=== PATIENT | male | born 1995 | race Caucasian/White ===

== ENCOUNTER 2022-10-12 13:23 | Inpatient (IN) | payer OTHER ==
[~2022-10-12 13:23] MED LIST: Iopamidol-370 76% 500 ML 1 ML ONE
[2022-10-12] MEDS ORDERED: Fentanyl 100 MCG/2 ML VIAL ONE ×2 (13:30→17:18)
[2022-10-12] MEDS ORDERED: Boostrix 0.5 ML (Tdap) VIAL (>/=7 yrs of age) ONE (14:06)
[2022-10-12] MEDS ORDERED: LORazepam 2 MG/ML SYR.(CARPUJECT) ONE (14:06)
[2022-10-12] MEDS ORDERED: Cyclobenzaprine 10 MG TAB PO PRN (14:54)
[2022-10-12] MEDS ORDERED: Morphine 2 MG/ML VIAL ONE (15:39)
[2022-10-12] MEDS ORDERED: Ondansetron PF 4 MG/2 ML Vial IVP PRN (16:43)
[2022-10-12] MEDS ORDERED: Ipratropium/Albuterol 3 ML NEB NEB PRN (16:43)
[2022-10-12] MEDS ORDERED: Morphine 2 MG/ML VIAL SLOW IVP PRN (16:43)
[2022-10-12] MEDS ORDERED: hydrALAZINE 20 MG/ML VIAL SLOW IVP PRN (16:43)
[2022-10-12] MEDS ORDERED: Acetaminophen 325 MG TAB PO SCH (16:45)
[2022-10-12] MEDS ORDERED: Ketorolac Tromethamine 30 MG/ML VIAL ONE (17:17)
[2022-10-12] MEDS ORDERED: Ondansetron PF 4 MG/2 ML Vial ONE (17:24)
[2022-10-12 17:48] LABS: #Lymphocytes 1.4 thou/uL (1.20-3.40); #Monocytes 1.9 thou/uL (0.11-0.59); #Neutrophils 12.6 thou/uL (1.40-6.50); %Basophils 0.1 % (0.0-1.0); %Eosinophils 0.1 % (0.0-10.0); %Lymphocytes 8.6 % (21.0-51.0); %Monocytes 11.8 % (0.0-10.0); %Neutrophils 79.4 % (42.0-75.0); Hemoglobin 15.6 g/dL (14.0-18.0); Mean Corpuscular HGB CONC 34.3 g/dL (32.0-36.0); Mean Corpuscular Hemoglobin 29.9 pg (27.0-31.0); Mean Corpuscular Volume 87.3 fl (78.0-98.0); Mean Platelet Volume 9.3 fL (7.4-10.4); Platelet Count 219 10x3/uL (130-400); RBC Distribution Width 11.9 % (11.5-14.5); Red Blood Cell (RBC) Count 5.21 mill/uL (4.70-6.10); White Blood Cell (WBC) Count 15.9 10x3/uL (4.8-10.8)
[2022-10-12 18:15] LABS: INR-International Normal Ratio 1.1; PTT 23.9 sec (22.9-36.1); Prothrombin Time 14.5 sec (12.0-14.7)
[2022-10-12 19:00] LABS: Chloride 105 mmol/L (98-107); Potassium 4.2 mmol/L (3.5-5.1); Sodium 135 mmol/L (136-145)
[2022-10-12 19:01] LABS: Calcium 8.7 mg/dL (7.8-10.44)
[2022-10-12 19:02] LABS: Glucose 110 mg/dL (70-105)
[2022-10-12 19:03] LABS: Anion Gap 12 mmol/L (10-20); Carbon Dioxide 22 mmol/L (22-29)
[2022-10-12 19:04] LABS: Phosphorus 3.3 mg/dL (2.3-4.7)
[2022-10-12 19:05] LABS: Calc. Creatinine Clearance 0 mL/min (70-130); Estimated GFR 85
[2022-10-12 19:07] LABS: BUN (Urea Nitrogen) 14 mg/dL (8.9-20.6)
[2022-10-12 19:08] LABS: Magnesium 1.6 mg/dL (1.6-2.6)
[2022-10-12] MEDS: traMADol HCl 50 MG TAB PO SCH (19:34)
[2022-10-12] MEDS: Acetaminophen 500 MG TAB PO SCH (19:35)
[2022-10-12] MEDS: Sodium Chloride 0.9% 1,000 ML IV SCH (20:15)
[2022-10-12] MEDS: Senokot S 8.6-50 MG TAB PO SCH (20:25)
[2022-10-12] MEDS: Famotidine/PF 20 mg/2ml Vial SLOW IVP SCH (20:25)
[2022-10-12 22:20] VITALS: BMI 32.1
[2022-10-12 23:40] LABS: SARS-CoV-2 NAA Rapid Test Not Detected (NotDetected)
[2022-10-13] MEDS: Acetaminophen 500 MG TAB PO SCH ×5 (00:47→23:43)
[2022-10-13] MEDS: traMADol HCl 50 MG TAB PO SCH ×5 (00:49→23:42)
[2022-10-13] MEDS: Sodium Chloride 0.9% 1,000 ML IV SCH ×3 (03:58→17:16)
[2022-10-13 05:55] LABS: #Eosinphils 0.1 thou/uL (0.0-0.7); #Lymphocytes 1.5 thou/uL (1.20-3.40); #Monocytes 1.1 thou/uL (0.11-0.59); #Neutrophils 5.1 thou/uL (1.40-6.50); %Basophils 0.5 % (0.0-1.0); %Eosinophils 0.8 % (0.0-10.0); %Lymphocytes 19.6 % (21.0-51.0); %Monocytes 13.7 % (0.0-10.0); %Neutrophils 65.4 % (42.0-75.0); Hemoglobin 13.8 g/dL (14.0-18.0); Mean Corpuscular HGB CONC 33.1 g/dL (32.0-36.0); Mean Corpuscular Hemoglobin 29.1 pg (27.0-31.0); Mean Corpuscular Volume 88.1 fl (78.0-98.0); Mean Platelet Volume 7.9 fL (7.4-10.4); Platelet Count 157 10x3/uL (130-400); RBC Distribution Width 11.8 % (11.5-14.5); Red Blood Cell (RBC) Count 4.73 mill/uL (4.70-6.10); White Blood Cell (WBC) Count 7.9 10x3/uL (4.8-10.8)
[2022-10-13] MEDS: Polyethylene Glycol 3350 17 GM Packet PO SCH (08:22)
[2022-10-13] MEDS: Senokot S 8.6-50 MG TAB PO SCH ×2 (08:22→21:13)
[2022-10-13] MEDS ORDERED: CEFAZOLIN 2 GM in Sodium Chloride 0.9% 100 ML IVPB SCH (08:45)
[2022-10-13] MEDS ORDERED: Silver Sulfadiazine 50 GM JAR TP SCH ×2 (09:00→21:00)
[2022-10-13] MEDS: Famotidine/PF 20 mg/2ml Vial SLOW IVP SCH ×2 (10:02→21:13)
[2022-10-13] MEDS ORDERED: fentaNYL PF 100 MCG/2 ML SYRINGE ONE (12:55)
[2022-10-13] MEDS ORDERED: CEFAZOLIN 2 GM VIAL ONE (13:12)
[2022-10-13] MEDS ORDERED: Sodium Chloride 0.9% 100 ML ONE (13:12)
[2022-10-13] MEDS ORDERED: Lidocaine 1% PF 5 ML VIAL ONE (13:28)
[2022-10-13] MEDS ORDERED: PROPOFOL 200 MG/20 ML VIAL ONE (13:28)
[2022-10-13] MEDS ORDERED: Ketorolac Tromethamine 30 MG/ML VIAL ONE (13:28)
[2022-10-13] MEDS ORDERED: Ondansetron PF 4 MG/2 ML Vial ONE (13:28)
[2022-10-13] MEDS ORDERED: Bupivacaine PF 0.5% 30 ML VIAL ONE (13:34)
[2022-10-13] MEDS ORDERED: Bacitracin Zinc Ointment 30 gm TUBE ONE (14:05)
[2022-10-13] MEDS ORDERED: Promethazine HCl 25 MG/ML VIAL IM PRN (15:23)
[2022-10-13] MEDS ORDERED: Ondansetron HCl/PF 4 MG/2 ML Vial IVP PRN (15:23)
[2022-10-13] MEDS ORDERED: Fentanyl 100 MCG/2 ML VIAL ONE (15:53)
[2022-10-13] MEDS: traMADol HCl 50 MG TAB PO PRN (17:14)
[2022-10-13] MEDS: CEFAZOLIN 2 GM in Sodium Chloride 0.9% 100 ML IVPB SCH (21:12)
[2022-10-14] MEDS: Sodium Chloride 0.9% 1,000 ML IV SCH (02:46)
[2022-10-14] MEDS: CEFAZOLIN 2 GM in Sodium Chloride 0.9% 100 ML IVPB SCH (06:06)
[2022-10-14] MEDS: traMADol HCl 50 MG TAB PO SCH ×2 (06:07→11:55)
[2022-10-14] MEDS: Acetaminophen 500 MG TAB PO SCH ×2 (06:07→11:54)
[2022-10-14 06:32] LABS: #Monocytes 1.2 thou/uL (0.11-0.59); #Neutrophils 9.8 thou/uL (1.40-6.50); %Basophils 0.1 % (0.0-1.0); %Eosinophils 0.2 % (0.0-10.0); %Lymphocytes 8.6 % (21.0-51.0); %Neutrophils 81.2 % (42.0-75.0); Mean Corpuscular HGB CONC 32.1 g/dL (32.0-36.0); Mean Corpuscular Hemoglobin 28.5 pg (27.0-31.0); Mean Platelet Volume 7.9 fL (7.4-10.4); Platelet Count 169 10x3/uL (130-400); RBC Distribution Width 11.5 % (11.5-14.5); Red Blood Cell (RBC) Count 4.55 mill/uL (4.70-6.10); White Blood Cell (WBC) Count 12.1 10x3/uL (4.8-10.8)
[2022-10-14 06:58] LABS: Anion Gap 16 mmol/L (10-20); BUN (Urea Nitrogen) 7 mg/dL (8.9-20.6); Calc. Creatinine Clearance 173 mL/min (70-130); Calcium 8.4 mg/dL (7.8-10.44); Carbon Dioxide 15 mmol/L (22-29); Chloride 108 mmol/L (98-107); Estimated GFR 113; Glucose 131 mg/dL (70-105); Phosphorus 2.9 mg/dL (2.3-4.7); Potassium 4.3 mmol/L (3.5-5.1); Sodium 135 mmol/L (136-145)
[2022-10-14] MEDS: Famotidine/PF 20 mg/2ml Vial SLOW IVP SCH (08:41)
[2022-10-14] MEDS: Polyethylene Glycol 3350 17 GM Packet PO SCH (08:43)
[2022-10-14] MEDS: Senokot S 8.6-50 MG TAB PO SCH (08:44)
[2022-10-14] MEDS: traMADol HCl 50 MG TAB PO PRN (11:55)
[2022-10-14 11:58] VITALS: BP 124/73; TEMP 98.1
[2022-10-15] MEDS ORDERED: FLU VACC QS2022-23(6MOS UP)/PF 60 MCG/0.5 ML SYRINGE IM ONE (09:00)
== END 2022-10-14 14:30 | disposition home or self-care (01) | DRG 505 ==
LOC: ERS 13:23 → SJJU 16:24
PROVIDERS: ADMIT Surgery; ATTEND Surgery
PROC: 0QSL04Z Reposition Right Tarsal with Internal Fixation Device, Open Approach (ICD-10-PCS; principal; 2022-10-13)
DX: S92.111A Displaced fracture of neck of right talus, initial encounter for closed fracture (principal); S30.810A Abrasion of lower back and pelvis, initial encounter; Z20.822 Contact with and (suspected) exposure to COVID-19; V22.49XA Other motorcycle driver injured in collision with two- or three-wheeled motor vehicle in traffic accident, initial encounter; Y92.410 Unspecified street and highway as the place of occurrence of the external cause
CPT/HCPCS: 36415; 70450; 71260; 72125; 74177; 80048; 83735; 84100; 85025; 85610; 85730; 86850; 86900; 86901; 90715; 97139; C1713; G0390; J1650; J1885; J2060; J2272; J2405; J2704; J3010; J3490; J7050; Q9967; S0020; S0028; U0002